=== PATIENT | male | born 2000 | race Caucasian/White ===

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

== ENCOUNTER 2019-08-08 18:23 | Emergency (ER) | payer SELFPAY ==
[2019-08-08 19:25] VITALS: BP 121/65
[2019-08-08] MEDS ORDERED: Lidocaine 1% MPF ** 5 ML VIAL INJ ONE (20:16)
[2019-08-08] MEDS ORDERED: Tetan/Diph/Pertus SYR(Tdap)* 0.5 ML SYR(BOOSTRIX) use SYR contains LATEX IM ONE (20:16)
--- NOTE | 2019-08-08 20:17 | UC ---
Laceration HPI - HPI Summary HPI Summary: 19-year-old male presenting with father for laceration of left fourth finger that occurred well he is taking the trash out at work today around 6 PM. Patient states it bled immediately and he just recently got it to stop. Notes throbbing pain. Denies decreased range of motion. Denies numbness and tingling. Believes his last tetanus shot was approximately 10 years ago like a booster today. - History Of Current Complaint Chief Complaint: UCLaceration Stated Complaint: FINGER INJURY Hx Obtained From: Patient Pain Intensity: 8 Pain Scale Used: 0-10 Numeric - Allergies/Home Medications Allergies/Adverse Reactions: Allergies Allergy/AdvReac Type Severity Reaction Status Date / Time amoxicillin Allergy Hives Verified 08/08/19 19:20 codeine Allergy Nausea And Verified 08/08/19 19:20 Vomiting Home Medications: Home Medications Insulin LISPRO* [HumaLOG*] 0 unit SUBCUT SEE INSTRUCTIONS 08/28/15 [History Confirmed 08/08/19] Insulin GLARGINE(*) [Lantus 100 unist/ml 10 ml VIAL (*)] 0 units SUBCUT ONCE 04/04 [History Confirmed 08/08/19] PMH/Surg Hx/FS Hx/Imm Hx - Surgical History Surgical History: None - Family History Known Family History: Positive: Cardiac Disease, Hypertension - Social History Alcohol Use: None Substance Use Type: None Smoking Status (MU): Never Smoked Tobacco - Immunization History Most Recent Influenza Vaccination: fall 2016 Most Recent Pneumonia Vaccination: none Vaccination Up to Date: Yes Review of Systems All Other Systems Reviewed And Are Negative: No Constitutional: Positive: Negative Skin: Positive: Other - Left fourth finger laceration Respiratory: Positive: Negative Cardiovascular: Positive: Negative Musculoskeletal: Positive: Negative Neurological/Mental Status: Positive: Negative Physical Exam - Summary Physical Exam Summary: Vital Signs Reviewed: Yes A+Ox3, no distress Eyes: Conjunctiva Clear ENT: Hearing grossly normal neck: supple Respiratory: Positive: No respiratory distress, No accessory muscle use Cardiovascular: skin color reflect adequate perfusion Musculoskeletal Exam: MCCORMICK x 4 without difficulty, L 4th finger ROM intact Neurological: Positive: Alert, ambulatory without difficulty Psychological: Positive: Normal Response To Family Skin: Positive: 1cm superficial linear laceration noted on fingertip of L 4th finger. no active bleeding, mild tenderness with palpation Vital Signs: Initial Vital Signs Temp 99.2 F 08/08/19 19:21 Pulse 69 08/08/19 19:21 Resp 16 08/08/19 19:21 BP 121/65 08/08/19 19:21 Pulse Ox 100 08/08/19 19:21 Laceration Repair - Laceration Repair 1 Description: Linear Laceration Size After Repair: Length (cm) - 1 Modified For Repair: No Type Injection: Local Anesthesia Used: 1.0% Lido Cleansing Completed Via Routine Prep: Yes Irrigation With Pressure Irrigation Device: Yes Closure Material: Sutures - 2 sutures Closure Method: Single Layer Suture Of: Skin Suture Type: Prolene - 4-0 Laceration Course/Dx - Course/Dx Course Of Treatment: Patient presenting with laceration of left 4th finger. The wound was irrigated and I repaired it with 2 sutures. A dressing was then applied. I educated patient on wound care and suture care. Patient also received tetanus booster today. Educated on signs and symptoms of infection and instructed to return if any occur. Instructed to follow up with PCP or return for suture removal in 7- 10 days. Patient voiced understanding and agreed with the treatment plan. - Diagnosis Provider Diagnosis: Laceration of index finger of left hand without complication Discharge ED - Sign-Out/Discharge Documenting (check all that apply): Patient Departure All imaging exams completed and their final reports reviewed: No Studies - Discharge Plan Condition: Stable Disposition: HOME Patient Education Materials: Diphtheria/Acellular Pertussis/Tetanus Booster Vaccine (By injection), Care For Your Stitches (ED), Laceration (ED) Referrals: Brandon Silvestre MD [Primary Care Provider] - Additional Instructions: You received 2 stitches today. Keep your stitches clean and dry for the first 24-48 hours. You may gently wash with warm water and soap daily after that. Changes dressing daily or as needed. Your stitches will not absorb. Return in 7-10 days to have your stitches removed. You may take over the counter pain medications as directed for pain relief. Return if you notice any redness, swelling, fluid drainage, fever, or nausea and vomiting. You also received a tetanus booster today. You may be sore at the injection site. This is normal and should resolve within a few days. - Billing Disposition and Condition Condition: STABLE Disposition: Home
== END 2019-08-08 21:13 | disposition home or self-care (01) ==
LOC: UCEAST 18:23
DX: S61.211A Laceration without foreign body of left index finger without damage to nail, initial encounter (principal); Z23 Encounter for immunization; Z88.0 Allergy status to penicillin; Z88.5 Allergy status to narcotic agent; X58.XXXA Exposure to other specified factors, initial encounter; Y92.9 Unspecified place or not applicable
CPT/HCPCS: 12001; 90471; 90715; 99211; G0463

== ENCOUNTER 2020-11-16 23:11 | Observation (INO) ==
[2020-11-16] MEDS ORDERED: NS 0.9% 1000 ml BAG 2,000 ML IV ONE (23:21)
[2020-11-16] MEDS ORDERED: Ondansetron 4 mg VIAL 2 MG/ML 2 ml VIAL IV ONE (23:21)
[2020-11-16 23:48] LABS: ABS Basophils 0.1 10^3/ul (0-0.2); ABS Eosinophils 0.7 10^3/ul (0-0.6); ABS Lymphocytes 3.9 10^3/ul (1.0-4.8); ABS Monocytes 0.9 10^3/ul (0-0.8); Eosinophil % 4.3 %; Hematocrit 49 % (42-52); Hemoglobin 16.4 g/dL (14.0-18.0); Lymphocyte % 23.6 %; Mean Corpuscular HGB Conc 34 g/dL (31-36); Mean Corpuscular Hemoglobin 29 pg (27-31); Mean Corpuscular Volume 85 fL (80-94); Mean Platelet Volume 9.5 fL (7.4-10.4); Platelet Count 383 10^3/uL (150-450); Red Blood Count 5.75 10^6 /uL (4.18-5.48); Red Cell Distribution Width 13 % (10-15); White Blood Count 16.5 10^3/uL (3.5-10.8)
[2020-11-17 00:05] LABS: ALT 24 U/L (7-52); AST 16 U/L (13-39); Albumin 4.7 g/dL (3.2-5.2); Albumin/Globulin Ratio 1.7 (1-3); Alkaline Phosphatase 88 U/L (35-149); Anion Gap 22 mmol/L (2-11); Blood Urea Nitrogen 23 mg/dL (6-24); C Reactive Protein < 1.00 mg/L (<8.01); CO2 Carbon Dioxide 16 mmol/L (22-32); Chloride 96 mmol/L (101-111); EGFR African American 115.5 (>60); EGFR Non-African American 95.4 (>60); Globulin 2.7 g/dL (2-4); Glucose 485 mg/dL (70-100); Lipase 11 U/L (11.0-82.0); Sodium 134 mmol/L (135-145); Total Protein 7.4 g/dL (6.4-8.9)
[2020-11-17] MEDS ORDERED: Dextrose 50% Syringe 50 ml 25 GM/50 ML SYRINGE IV PUSH ONE (01:16)
[2020-11-17] MEDS ORDERED: NS 0.9% 1000 ml BAG 1,000 ML IV ONE (01:26)
[2020-11-17 01:27] LABS: Urine Appearance Clear; Urine Bilirubin Negative (Negative); Urine Blood Negative (Negative); Urine Color Straw; Urine Glucose 3+(>=500 mg/dL) (Negative); Urine Ketones 2+ (Negative); Urine Nitrite Negative (Negative); Urine Protein Negative (Negative); Urine Specific Gravity 1.022 (1.002-1.030); Urine Urobilinogen Negative (Negative)
[2020-11-17] MEDS ORDERED: Insulin Infusion 100unit/100mL 100 UNIT/100 ML BAG IV SCH ×2 (01:30→03:30)
[2020-11-17] MEDS ORDERED: Ondansetron 4 mg VIAL 2 MG/ML 2 ml VIAL IV PRN (02:06)
[2020-11-17] MEDS ORDERED: Al Hydrox/Mg Hydrox/Simet LIQ 30 ML UDC PO PRN (02:06)
[2020-11-17] MEDS ORDERED: NS 0.9% 1,000 ML IV SCH (03:15)
[2020-11-17] MEDS ORDERED: D5W NS IVFLUID 1000 ML IV SCH (05:00)
[2020-11-17 05:13] LABS: Calcium 7.7 mg/dL (8.6-10.3)
[2020-11-17 05:15] LABS: Potassium 4.2 mmol/L (3.5-5.0)
[2020-11-17 05:18] LABS: EGFR African American 147.7 (>60)
[2020-11-17] MEDS ORDERED: Insulin LISPRO* FOR INSULIN PUMP SUBCUT SCH (07:00)
[2020-11-17 07:45] LABS: Calcium 8.1 mg/dL (8.6-10.3); EGFR African American 164.1 (>60); EGFR Non-African American 135.6 (>60); Potassium 3.9 mmol/L (3.5-5.0)
[2020-11-17 09:07] LABS: Magnesium 1.7 mg/dL (1.9-2.7); Phosphorus 2.6 mg/dL (2.5-5.0)
[2020-11-17 12:31] VITALS: BP 116/71
== END 2020-11-17 12:34 | disposition home or self-care (01) ==
LOC: ED 23:11 → ICU 23:11
PROVIDERS: ADMIT Internal Medicine; ATTEND Surgery Surgical Critical Care